=== PATIENT | male | born 1990 | race Caucasian/White ===

== ENCOUNTER 2020-11-08 21:48 | Inpatient (IN) | payer OTHER ==
[~2020-11-08] VITALS: Ht 180.3 cm; Wt 113.9 kg
[~2020-11-08 21:48] MED LIST: NAPROXEN500 MG PO; TRIAMCINOLONE 080 GM TOP
[2020-11-08 22:41] LABS: HCT 42.9 % (42.0-52.0); MCH 27.7 pg (25.0-31.0); MCHC 32.6 g/dL (32.0-36.0); MCV 84.8 fL (78.0-100.0); MPV 10.7 fL (6.0-9.5); RBC 5.06 M/uL (4.70-6.00); RDW 14.2 % (11.5-14.0); WBC 5.1 K/uL (4.0-10.5)
[2020-11-08 23:01] LABS: BUN/CREAT RATIO (CALC) 14.5 RATIO; CREATININE 1.1 mg/dL (0.67-1.17); POTASSIUM 3.7 mmol/L (3.5-5.1)
[2020-11-08 23:54] LABS: LDH 219 U/L (85-227)
[2020-11-09] MEDS ORDERED: ZYRTEC10 MG PO (03:59)
[2020-11-10 06:17] LABS: BASOPHIL 0 % (0-2); EOSINOPHIL 0 % (0-5); HCT 39.8 % (42.0-52.0); MCH 27.6 pg (25.0-31.0); MCHC 32.7 g/dL (32.0-36.0); MCV 84.5 fL (78.0-100.0); MONOCYTE 7.6 % (0-12); MPV 11.3 fL (6.0-9.5); NRBC 0; PLT 186 K/uL (150-400); RBC 4.71 M/uL (4.70-6.00); RDW 14.4 % (11.5-14.0); WBC 5.3 K/uL (4.0-10.5)
[2020-11-10 06:42] LABS: ALBUMIN 3.3 g/dL (3.4-5.0); BILIRUBIN - TOTAL 0.9 mg/dL (0.2-1.0); BUN/CREAT RATIO (CALC) 16.2 RATIO; CREATININE 1.05 mg/dL (0.67-1.17); GLOBULIN (CALCULATION) 3.6 g/dL; POTASSIUM 3.6 mmol/L (3.5-5.1); TOTAL PROTEIN 6.9 g/dL (6.4-8.2)
[2020-11-11 06:59] LABS: ALBUMIN 3.3 g/dL (3.4-5.0); BILIRUBIN - TOTAL 0.8 mg/dL (0.2-1.0); BUN/CREAT RATIO (CALC) 17.7 RATIO; CREATININE 0.96 mg/dL (0.67-1.17); GLOBULIN (CALCULATION) 3.7 g/dL; POTASSIUM 3.3 mmol/L (3.5-5.1)
--- NOTE | 2020-11-11 15:46 | NUR ---
O2 ORDERED FROM [facility] FOR WEEKEND DISCHARGE.
--- NOTE | 2020-11-11 18:26 | NUR ---
PATIENT HAD EPISODE OF BRADYCARDIA, HR DROPPED 30s-40s WHILE ASLEEP MD NOTIFIED
[2020-11-12 04:45] LABS: BASOPHIL 0.2 % (0-2); EOSINOPHIL 0.2 % (0-5); HCT 43.2 % (42.0-52.0); HGB 14.3 g/dl (13.2-18.0); LYMPHOCYTE 28.6 % (15-48); MCH 28.1 pg (25.0-31.0); MCHC 33.1 g/dL (32.0-36.0); MCV 84.9 fL (78.0-100.0); MONOCYTE 11.1 % (0-12); MPV 10.5 fL (6.0-9.5); NEUTROPHIL 58.6 % (41-80); NRBC 0; PLT 238 K/uL (150-400); RBC 5.09 M/uL (4.70-6.00); RDW 14.1 % (11.5-14.0); WBC 5.9 K/uL (4.0-10.5)
[2020-11-12 05:03] LABS: ALBUMIN 3.4 g/dL (3.4-5.0); BILIRUBIN - TOTAL 0.6 mg/dL (0.2-1.0); BUN/CREAT RATIO (CALC) 16.3 RATIO; CREATININE 0.98 mg/dL (0.67-1.17); GLOBULIN (CALCULATION) 3.9 g/dL; POTASSIUM 4.3 mmol/L (3.5-5.1); TOTAL PROTEIN 7.3 g/dL (6.4-8.2)
[2020-11-13 04:30] LABS: BASOPHIL 0.3 % (0-2); EOSINOPHIL 0.2 % (0-5); HCT 42.8 % (42.0-52.0); HGB 14.3 g/dl (13.2-18.0); LYMPHOCYTE 32.3 % (15-48); MCH 27.7 pg (25.0-31.0); MCHC 33.4 g/dL (32.0-36.0); MCV 82.9 fL (78.0-100.0); MONOCYTE 11.2 % (0-12); MPV 10.6 fL (6.0-9.5); NRBC 0; PLT 271 K/uL (150-400); RBC 5.16 M/uL (4.70-6.00); RDW 14.1 % (11.5-14.0); WBC 6.4 K/uL (4.0-10.5)
[2020-11-13 05:00] LABS: ALBUMIN 3.4 g/dL (3.4-5.0); BILIRUBIN - TOTAL 0.7 mg/dL (0.2-1.0); BUN/CREAT RATIO (CALC) 17.6 RATIO; CREATININE 0.91 mg/dL (0.67-1.17); GLOBULIN (CALCULATION) 3.9 g/dL; POTASSIUM 4.1 mmol/L (3.5-5.1); TOTAL PROTEIN 7.3 g/dL (6.4-8.2)
[2020-11-13] MEDS ORDERED: DEXAMETHASONE 2M2 MG PO (11:51)
== END 2020-11-13 13:00 | disposition home or self-care (01) | DRG 177 ==
LOC: FER 21:48 → FMS 11-09 02:53
PROVIDERS: Emergency Medicine; Family Medicine; ADMIT Internal Medicine
PROC: 8E0ZXY6 Isolation (ICD-10-PCS; principal; 2020-11-09)
PROC: XW033E5 Introduction of Remdesivir Anti-infective into Peripheral Vein, Percutaneous Approach, New Technology Group 5 (ICD-10-PCS; 2020-11-09)
PROC: XW0DXM6 Introduction of Baricitinib into Mouth and Pharynx, External Approach, New Technology Group 6 (ICD-10-PCS; 2020-11-09)
DX: U07.1 COVID-19 (principal); J12.82 Pneumonia due to coronavirus disease 2019; J96.01 Acute respiratory failure with hypoxia; Z83.3 Family history of diabetes mellitus; Z82.49 Family history of ischemic heart disease and other diseases of the circulatory system; Z84.89 Family history of other specified conditions; Z90.89 Acquired absence of other organs
CPT/HCPCS: 36415; 36600; 71275; 80048; 80053; 82728; 82803; 83615; 84484; 85025; 85379; 93005; 94010; 94640; C9399; J1650; J2405; J3411; J3475; J7050; J7120; J8540; Q9967; U0002